=== PATIENT | female | born 1940 | race Caucasian/White ===

== ENCOUNTER 2022-07-03 14:24 | Emergency (ER) | payer MEDICARE, SELFPAY ==
[2022-07-03] VITALS (7 sets, daily range): BP systolic 107–184; BP diastolic 77–140; PULSE 78–120; RESP 12–22; TEMP 37.1; O2SAT 96–99
--- NOTE | ~2022-07-03 | CT_ITS ---
EXAMINATION: CT brain wo con DATE: 07/03/2022 15:43 INDICATION: head injury . TECHNIQUE: Computed tomography (CT) of the head was performed without intravenous contrast. The mA wa s adjusted according to patient size. Iterative reconstruction technique was employed. The dose-lengt h product was 605.33 mGy-cm. COMPARISON: None. FINDINGS: Moderate generalized motion limitations, that severely affects the reformatted images. No acute intracranial hemorrhage or extra-axial fluid collection. No hydrocephalus, mass, or herniation. No acute ischemic infarct. Unremarkable dural venous sinus attenuation. No acute osseous abnormality. The aerated spaces are clear. Moderate atrophy and chronic white matter change. Atherosclerotic intracranial calcification. IMPRESSION: Significant motion limitations, such that subtle pathology could be missed. Within that constraint, n o definite acute intracranial process is detected. Reviewed, dictated and finalized at location K. ATCHER TOW TRUCK IMPRESSION: Significant motion limitations, such that subtle pathology could be missed. Wit hin that constraint, no definite acute intracranial process is detected.
--- NOTE | ~2022-07-03 | XR_ITS ---
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 No chest complaints. hx dementia Comparison: None available. RESULT: Lines, tubes, and devices: Cholecystectomy clips. Lungs and pleura: Mild senescent change, otherwise clear. Cardiomediastinal silhouette: Stable. Other: No acute osseous or upper abdominal finding. IMPRESSION: No acute cardiopulmonary process. Reviewed, dictated and finalized at location K. AND BOILER COVERS SUPERVISOR
--- NOTE | ~2022-07-03 | XR_ITS ---
EXAM: XR pelvis 1-2V DATE: 07/03/2022 17:24 HISTORY: Fall today, unspecified pain.. poor historian . COMPARISON: None available. FINDINGS: Anastomotic bowel suture projects over the pelvis. Normal mineralization. No fracture or d islocation. No lytic or blastic lesion. Degenerative disc disease in the lower lumbar spine. Degenera tive change in the bilateral hips and pubic symphysis. No erosion or periosteal change. Soft tissues within normal limits. IMPRESSION: No acute osseous finding in the pelvis. Reviewed, dictated and finalized at location K. HELPER
--- NOTE | ~2022-07-03 | CT_ITS ---
EXAMINATION: CT cervical spine wo con DATE: 07/03/2022 15:43 INDICATION: head injury, fall TECHNIQUE: Computed tomography (CT) of the cervical spine was performed without intravenous contrast. Automated exposure control and iterative reconstruction technique were employed. The dose-length pro duct was 190.66 mGy-cm. COMPARISON: None. FINDINGS: Vertebral Body Alignment: Reversed cervical lordosis. Multilevel minimal listheses, presumably on a d egenerative basis. Craniocervical and atlantoaxial alignment: Moderate degenerative change. Alignment intact. Cranial se ttling. Osseous structures/fracture: No evidence of a lytic or blastic process in the visualized spine. No e vidence of acute fracture. . Cervical soft tissues: The paraspinal soft tissues planes are maintained. Degenerative changes: Multilevel degenerative disc disease and facet arthropathy. Severe right neural foraminal narrowing at C5-6. No severe central canal narrowing. IMPRESSION: No acute fracture or traumatic malalignment in the cervical spine. Reviewed, dictated and finalized at location K. NESS CONTINUITY PLANNING DIRECTOR
--- NOTE | 2022-07-03 14:51 | ED.FALL ---
HPI - Fall General Chief Complaint: Fall Stated Complaint: fall - head/neck pain Time Seen by Provider: 07/03/22 14:39 Source: patient and EMS Mode of arrival: EMS Limitations: dementia History of Present Illness HPI Narrative: This is a 81 year old female that presents to the ER after a fall today with head injury. Reportedly had witnessed fall at nursing facility. She did hit her head. She does not remember falling. Has no complaints currently. Related Data Allergies Allergy/AdvReac Type Severity Reaction Status Date / Time No Known Allergies Allergy Verified 07/03/22 16:46 Review of Systems Review of Systems: ROS unobtainable: Yes unobtainable due to medical condition (dementia) [facility] Past Medical History Medical History (Updated 07/03/22 @ 17:58 by Carisa Ramirez PA-C) History of dementia Social History Social History (Updated 07/03/22 @ 17:58 by Carisa Ramirez PA-C) Substance use: never Exam Narrative: GENERAL: Elderly, well-nourished, and in no acute distress. HEAD: Normocephalic, atraumatic. EYES: PERRLA and EOMI. ENT: Nares clear, no rhinorrhea or epistaxis. Mucous membranes moist. Oropharynx without tonsillar hypertrophy exudate or other lesions. Bilateral TMs pearly vallejo non-bulging NECK: Supple. No adenopathy or masses. C collar in place CHEST: Clear to auscultation. No respiratory distress. No wheezes rales or rhonchi HEART: Regular rate and rhythm. No murmur heard. Normal peripheral pulses. ABDOMEN: Soft, nontender, nondistended, normal active bowel sounds. EXTREMITIES: Normal range of motion. No edema or obvious deformity. SKIN: Warm, dry, no rash. NEURO: No focal deficits. Alert and oriented x1. PSYCH: Normal mood and affect Course Course Emergency Course: Family was updated on workup Vital Signs Vital signs: Vital Signs Temperature 98.8 F 07/03/22 14:23 Pulse Rate 80 07/03/22 14:23 Respiratory Rate 12 07/03/22 14:23 Blood Pressure 107/89 07/03/22 14:23 Pulse Oximetry 99 07/03/22 14:23 Oxygen Delivery Room Air 07/03/22 14:23 Temperature 98.8 F 07/03/22 14:23 Pulse Rate 80 07/03/22 14:23 Respiratory Rate 12 07/03/22 14:23 Blood Pressure 107/89 07/03/22 14:23 Pulse Oximetry 99 07/03/22 14:23 Oxygen Delivery Room Air 07/03/22 14:23 MDM - Fall MDM Narrative Medical decision making narrative: Patient presents to the emergency department after a fall today with head injury. Reportedly is at her baseline mentation. No focal deficits noted on exam. She has no complaints. Her vitals are stable. Initial CT scan of her brain was limited due to motion, this was repeated with CT scan of the brain and cervical spine without acute findings. Chest x-ray without acute cardiopulmonary abnormality. Pelvis x-ray also without acute findings. Family updated on case findings. Will be discharged back to [facility] to have follow up with primary care provider. Given warnings to return to the ER Differential Diagnosis Differential diagnosis: Likely concussion without loss of consciousness and other (subdural hematoma, cervical fracture, cervical strain) Imaging Data Radiologist's impression: ITS Impressions Head CT 07/03/22 15:56 IMPRESSION: Significant motion limitations, such that subtle pathology could be missed. Within that constraint, no definite acute intracranial process is detected. ADDENDUM: 07/03/22 1740 Additional imaging was obtained after the initial report was finalized. The new images are free of motion artifact and diagnostic. No acute intracranial process is detected. Old right basal ganglia lacunar infarct. Prominent right cerebral sulcus/CSF density collection, near the vertex likely representing a small, benign arachnoid cyst. Cervical Spine CT 07/03/22 16:20 IMPRESSION: No acute fracture or traumatic malalignment in the cervical spine. Chest X-Ray 07/03/22 17:39 IMPRESSION: No acute cardiopulm
--- NOTE | 2022-07-03 15:14 | PC.NURSE ---
Jojo Kilgore, and Nathan attempted to change the patient's soiled diaper when patient became agitated, attempting to hit and kick us, and refused to be changed. Per detention daughter is on the way to the hospital. Patient is attempting to remove c-collar even after being informed of why she needs to wear it
[2022-07-03] MEDS: LORazepam INJ (*CRX) 2 MG/ML VIAL 1 MG IM (16:46)
--- NOTE | 2022-07-03 18:22 | PC.NURSE ---
[facility] accepted NH return to [place] ETA 20p Trip # [phone] [id number] [facility] declined 1808 [facility] declined
--- NOTE | 2022-07-03 18:45 | PC.NURSE ---
Report called to Mey at 1845. My BELLO took report.
--- NOTE | 2022-07-03 19:22 | PC.NURSE ---
[facility] here.
== END 2022-07-03 19:25 ==
PROVIDERS: Emergency Provider Physician Assistant
DX: S09.90XA Unspecified injury of head, initial encounter (principal); F03.90 Unspecified dementia, unspecified severity, without behavioral disturbance, psychotic disturbance, mood disturbance, and anxiety; W19.XXXA Unspecified fall, initial encounter
CPT/HCPCS: 70450; 71046; 72125; 72170; 96372; 99284; J2060

== ENCOUNTER 2022-08-08 07:02 | Emergency (ER) | payer MEDICARE, SELFPAY ==
--- NOTE | ~2022-08-08 | CT_ITS ---
Noncontrast CT scan of the cervical spine Technique: Multiple contiguous axial [address] images of the cervical spine were obtained and rec onstructed in 2D sagittal and coronal planes on the acquisition scanner. Dose reduction technique was used on this scan by utilizing automated exposure control, adjustment of the mA and/or kV according to patient size. COMPARISON: 07/03/2022 Clinical History: Pain Findings: No fractures or dislocations. Osseous alignment is unchanged from prior exam. Stable minim al grade 1 anterolisthesis of C4 over C5. There are stable degenerative disc change most notably at C 5-C6 and C6-C7, with predominant right-sided uncovertebral degenerative change at these levels. There are stable facet arthropathy throughout the cervical spine. There is significant left neural foramin al narrowing at C4-C5. There is right neural foraminal narrowing at C5-C6. There is probable bilatera l neural foraminal narrowing at C3-C4. No prevertebral soft tissue swelling. Impression: No fracture. Stable minimal grade 1 anterolisthesis of C4 over C5. Stable degenerative spondylosis as compared to 1223, as detailed above. Reviewed, dictated and finalized at location . Impression: No fracture. Stable minimal grade 1 anterolisthesis of C4 over C5. Stable degenerative spondylosis as compared to 1223, as detailed above.
--- NOTE | ~2022-08-08 | CT_ITS ---
CT head without contrast Indication: Status post fall COMPARISON: 07/03/2022 Technique: Serial scans were obtained through the brain without the administration of contrast. Dose reduction technique was used on this scan by utilizing automated exposure control and iterative recon struction technique. The dose-length product (DLP) was 983.67 mGy-cm. Findings: There is no evidence of intracranial hemorrhage, mass lesion, or acute infarct. Chronic lac unar infarcts noted in the right basal ganglia. The ventricles and subarachnoid spaces are dilated, c onsistent with moderate atrophy. Low attenuation regions are seen within the periventricular white m atter bilaterally, likely representing changes from chronic microvascular ischemic disease. There is no evidence of edema, mass effect or midline shift. The visualized paranasal sinuses and mastoid ai r cells are clear. Impression: No intracranial hemorrhage, mass, or acute infarct. Chronic right basal ganglia lacunar infarct. Atrophy and chronic white matter changes, as above. Reviewed, dictated and finalized at location . Impression: No intracranial hemorrhage, mass, or acute infarct. Chronic right basal ganglia lacunar infarct. Atrophy and chronic white matter changes, as above.
--- NOTE | ~2022-08-08 | XR_ITS ---
AP view of the pelvis Clinical history: Pain Findings: No acute fracture or dislocation is seen. Osseous alignment is anatomic. Minimal degenerati ve change of both hip joints noted. Soft tissues are unremarkable. Impression: No fracture or dislocation. Minimal degenerative change of both hip joints. Reviewed, dictated and finalized at location . Impression: No fracture or dislocation. Minimal degenerative change of both hip joints.
--- NOTE | ~2022-08-08 | XR_ITS ---
Left wrist Technique: PA, oblique, lateral, and ulnar deviation views were obtained. Clinical History: Status post fall Findings: No acute fracture or dislocation is seen. Osseous alignment is anatomic. There is mild dege nerative change at the first CMC joint. Soft tissues are unremarkable. Impression: No fracture or dislocation. Mild degenerative change at the first CMC joint. Reviewed, dictated and finalized at location . Impression: No fracture or dislocation. Mild degenerative change at the first CMC joint.
--- NOTE | ~2022-08-08 | XR_ITS ---
Right Shoulder Technique: AP and scapular Y views were obtained. Clinical History: Pain Findings: No fracture or dislocation is seen. Osseous alignment is anatomic. The glenohumeral and acr omioclavicular joint spaces are preserved. Soft tissues are unremarkable. Impression: Unremarkable right shoulder radiographs. Reviewed, dictated and finalized at [facility]. Impression: Unremarkable right shoulder radiographs.
--- NOTE | ~2022-08-08 | XR_ITS ---
Right ankle Technique: AP, oblique, and lateral views were obtained. Clinical History: Pain Findings: No acute fracture or dislocation is seen. Probable chronic avulsion fragments noted at the tip of the medial malleolus. Osseous alignment is anatomic. Ankle mortise and other visualized joint spaces are preserved. Soft tissues are otherwise unremarkable. Impression: No definite acute fracture or dislocation. Probable chronic avulsion fracture fragments at the tip of the medial malleolus. Reviewed, dictated and finalized at location . Impression: No definite acute fracture or dislocation. Probable chronic avulsion fracture fragments at the tip of the medial malleolus .
[2022-08-08 07:06] VITALS: BP 112/82; PULSE 72; RESP 23; TEMP 37.3; O2SAT 98
--- NOTE | 2022-08-08 07:22 | ED_ITS ---
HPI - Fall General Chief Complaint: Fall Stated Complaint: fall Time Seen by Provider: 08/08/22 07:09 History of Present Illness HPI Narrative: Patient with history of dementia presenting here from [facility] after fall, patient unable to elucidate why or how that happened. Related Data Allergies Allergy/AdvReac Type Severity Reaction Status Date / Time No Known Allergies Allergy Verified 07/03/22 16:46 Review of Systems Review of Systems: CONST: No fever. HEENT: No sore throat C/V: No chest pain RESP: No cough GI: No abdominal pain : No dysuria. M/S: Right shoulder pain SKIN: No rash. NEURO: [No headache or focal numbness or weakness] PSYCH: [No depression] [facility] Past Medical History Medical History (Updated 08/08/22 @ 08:50 by Kimberly Lin MD) History of dementia Social History Social History (Updated 07/03/22 @ 17:58 by Carisa Ramirez PA-C) Substance use: never Exam 2 Narrative: EXAMINATION OF ORGAN SYSTEMS/BODY AREAS: Constitutional: Vital signs per nursing GENERAL: Resting comfortably and in NAD then becomes anxious and confused HEAD: Normal with no signs of head trauma. EYES: EOMI, conjunctiva normal ENT: Hearing grossly intact LUNGS: Nonlabored breathing. HEART: [Regular rate and rhythm] ABD: [Soft], [nontender to palpation] EXT: Right shoulder tenderness, left wrist tenderness, right ankle tenderness. No obvious deformity anywhere SKIN: [No rashes or lesions.] NEURO: [Alert and oriented x 1. No gross focal sensory or strength deficits.] PSYCH: Normal affect Course Vital Signs Vital signs: Vital Signs Temperature 99.1 F 08/08/22 07:06 Pulse Rate 72 08/08/22 07:06 Respiratory Rate 23 H 08/08/22 07:06 Blood Pressure 112/82 08/08/22 07:06 Pulse Oximetry 98 08/08/22 07:06 Oxygen Delivery Room Air 08/08/22 07:06 Temperature 99.1 F 08/08/22 07:06 Pulse Rate 72 08/08/22 07:06 Respiratory Rate 23 H 08/08/22 07:06 Blood Pressure 112/82 08/08/22 07:06 Pulse Oximetry 98 08/08/22 07:06 Oxygen Delivery Room Air 08/08/22 07:06 MDM - Fall MDM Narrative Medical decision making narrative: 81-year-old female presents from [facility] with [facility], she reports some pain in her right shoulder, vital signs stable here, on exam has some tenderness to palpation to the right shoulder, left wrist, right ankle, given her confusion I will obtain imaging to ensure no fractures, including that of her head and neck. All imaging reviewed by myself, and per radiology interpretation is negative for acute fractures. Time of discharge she is not complaining of any pain anywhere she is just confused and wants to go home. Discharge Plan Discharge Clinical Impression: Fall Patient Disposition: NH Nursing Home/Asst Living Condition: Stable Instructions: Antibiotic Form, Fall Prevention for Older Adults (ED) Additional Instructions: Please follow up with your doctor; you can return for any further issues. Follow-up/Referrals: Rob Gaming MD [Physician] - 2 Days PHYSICIAN NOT ON STAFF,NONSTAFF [Primary Care Provider] -
[2022-08-08 10:12] VITALS: BP 114/80; PULSE 74; RESP 18; O2SAT 99
== END 2022-08-08 10:59 ==
PROVIDERS: Emergency Provider Emergency Medicine
DX: M25.511 Pain in right shoulder (principal); F03.90 Unspecified dementia, unspecified severity, without behavioral disturbance, psychotic disturbance, mood disturbance, and anxiety; W19.XXXA Unspecified fall, initial encounter
CPT/HCPCS: 70450; 72125; 72170; 73030; 73110; 73610; 99284

== ENCOUNTER 2022-09-02 09:33 | Emergency (ER) | payer MEDICARE, SELFPAY ==
--- NOTE | ~2022-09-02 | XR_ITS ---
XR elbow LT 2V 09/02/2022 13:21 INDICATION: Left elbow pain after fall PROCEDURE: 2 views left elbow COMPARISON: No prior studies for comparison. FINDINGS: Fracture, dislocation or subluxation is not identified. The soft tissues appear within norm al limits. No foreign bodies are identified. IMPRESSION: 1: NO ACUTE BONE OR JOINT ABNORMALITY IDENTIFIED. Reviewed, dictated and finalized at location B.
--- NOTE | ~2022-09-02 | CT_ITS ---
EXAMINATION: CT cervical spine wo con DATE: 09/02/2022 10:53 INDICATION: Status post fall. TECHNIQUE: Computed tomography (CT) of the cervical spine was performed without intravenous contrast. The dose-length product was mGy-cm. Automated exposure control and iterative reconstruction techniqu e were employed. COMPARISON: None FINDINGS: Straightening of cervical lordosis. There is disc narrowing at C3-4 through C7-T1. Disc cosmo rowing most severe at C5-6 and C6-7 with prominent ventral osteophytes. There is degenerative anterol isthesis at C3-4 and C4-5. Craniovertebral junction is normal. There is moderate multilevel uncinate and facet hypertrophy. Odontoid process is normal. Lung apices are normal. No acute fracture or traum atic malalignment. No paraspinal soft tissue abnormality. IMPRESSION: 1. No acute abnormality of the cervical spine. 2: Moderate cervical spondylosis. Reviewed, dictated and finalized at location B.
--- NOTE | ~2022-09-02 | CT_ITS ---
EXAMINATION: CT brain wo con DATE: 09/02/2022 10:53 INDICATION: Status post fall. Head trauma. TECHNIQUE: Computed tomography (CT) of the head was performed without intravenous contrast. The dose- length product was 605.33 mGy-cm. Automated exposure control and iterative reconstruction technique w ere employed. COMPARISON: CT dated 08/08/2022 FINDINGS: Generalized atrophy. There are scattered moderate periventricular and subcortical white mat ter changes, most likely related to small vessel ischemic disease (microangiopathy). There are chroni c bilateral lacunar infarctions. There is intracranial atherosclerosis. No acute intracranial hemorrh age, infarction, mass or mass effect. Paranasal sinuses and mastoids are pneumatized. No depressed sk ull fractures. IMPRESSION: 1. No acute intracranial abnormality. 2: Chronic bilateral lacunar infarctions. 3: Chronic age-related findings. Reviewed, dictated and finalized at location B.
--- NOTE | ~2022-09-02 | XR_ITS ---
AP view of the pelvis and AP and lateral views of the bilateral hips Clinical history: Pain Findings: No acute fracture or dislocation is seen. Osseous alignment is anatomic. Bilateral hip and SI joint spaces are preserved. Soft tissues are unremarkable. Impression: No significant abnormality is seen. Reviewed, dictated and finalized at [facility]. Impression: No significant abnormality is seen.
--- NOTE | ~2022-09-02 | XR_ITS ---
XR shoulder LT min 2V, XR humerus LT 09/02/2022 13:21 Indication: Left arm pain Procedure: 4 views left shoulder and 2 views left humerus Comparison: No prior studies for comparison. Findings: There is anatomic alignment. No fracture, subluxation or dislocation. No significant soft t issue abnormality. No significant soft tissue abnormality. Impression: 1: No acute bone or joint abnormality. Reviewed, dictated and finalized at location B. Impression: 1: No acute bone or joint abnormality. Impression: 1: No acute bone or joint abnormality.
--- NOTE | ~2022-09-02 | XR_ITS ---
XR forearm LT 2V 09/02/2022 13:21 INDICATION: Left arm pain after fall PROCEDURE: 2 views left forearm COMPARISON: No prior studies for comparison. FINDINGS: Fracture, dislocation or subluxation is not identified. The soft tissues appear within norm al limits. No foreign bodies are identified. IMPRESSION: 1: NO ACUTE BONE OR JOINT ABNORMALITY IDENTIFIED. Reviewed, dictated and finalized at location B.
--- NOTE | ~2022-09-02 | XR_ITS ---
EXAMINATION: XR chest 2V 09/02/2022 13:21 INDICATION: Status post fall. Chest injury. PROCEDURE: AP and lateral views the chest COMPARISON: 07/03/2022 FINDINGS: The lungs are clear. The cardiomediastinal silhouette is within normal limits. There are no pleural effusions. There is no pneumothorax suspected. IMPRESSION: 1: NO ACUTE CARDIOPULMONARY DISEASE. Reviewed, dictated and finalized at location B.
[2022-09-02 09:34] VITALS: BP 143/89; PULSE 71; RESP 19; TEMP 36.5; O2SAT 94
[2022-09-02 11:05] VITALS: PULSE 68; RESP 19; O2SAT 99
--- NOTE | 2022-09-02 11:58 | PC.NURSE ---
Per daughter, patient has been c/o R arm pain x weeks.
--- NOTE | 2022-09-02 12:12 | PC.NURSE ---
Patient agitated and trying to get out of stretcher. Sitter placed with patient for patient safety.
--- NOTE | 2022-09-02 12:22 | PC.NURSE ---
called dietary and ordered lunch tray for pt at this time
[2022-09-02 12:24] VITALS: BP 108/83; PULSE 86; RESP 20; O2SAT 95
--- NOTE | 2022-09-02 12:49 | ED.FALL ---
HPI - Fall General Chief Complaint: Fall <Sarah Coles PA-C - Last Filed: 09/02/22 19:21> Stated Complaint: fall <Sarah Coles PA-C - Last Filed: 09/02/22 19:21> Time Seen by Provider: 09/02/22 11:21 <Sarah Coles PA-C - Last Filed: 09/02/22 19:21> History of Present Illness HPI Narrative: 82 y/o F w/ history of dementia reports from [facility] from [facility] - memory care unit. Pt is unaware of why she is in the hospital. I spoke with Carisa, director, at [facility] who provided the history. Carisa reports patient is living at [facility] in assisted living with who takes care of her. called for help when he heard the patient fall in the bathroom. He found her on the ground laying her R side and reported she had hit her head at that time. Pt was not wearing appropriate shoes, was wearing socks. No LOC per . EMS arrived and while moving the patient, she complained of L shoulder and arm pain. Patient was noted to not be wearing appropriate footwear,, she was wearing socks at the time of fall on bathroom floor. Pt's [facility] was notified by [facility]. Pt is A&Ox1 at baseline. Patient has been seen multiple times in the emergency department in the past 2 months for falls. Per [facility], they have advised the family to move the patient out of assisted living and into senior care, however family declines. <Sarah Coles PA-C - Last Filed: 09/02/22 19:21> Related Data Allergies/Adverse Reactions: Allergies Allergy/AdvReac Type Severity Reaction Status Date / Time No Known Allergies Allergy Verified 07/03/22 16:46 <Sarah Coles PA-C - Last Filed: 09/02/22 19:21> Review of Systems Review of Systems: CONSTITUTIONAL: Denies fever, chills EYES: Denies visual changes, redness, or discharge. ENT: Denies rhinorrhea, congestion, sore throat, or otalgia. CARDIOVASCULAR: Denies chest pain, palpitations, or edema. RESPIRATORY: Denies cough or dyspnea. GASTROINTESTINAL: Denies abdominal pain, nausea, vomiting, or diarrhea. GENITOURINARY: Denies dysuria or hematuria. SKIN: Denies rash or itching. MUSCULOSKELETAL: Denies back pain, joint pain, or myalgia. NEUROLOGIC: See HPI PSYCHIATRIC: Denies anxiety or depression. <Sarah Coles PA-C - Last Filed: 09/02/22 19:21> PMFSH Past Medical History Medical History: Medical History History of dementia <Sarah Coles PA-C - Last Filed: 09/02/22 19:21> Social History Social History: Social History Substance use: never <Sarah Coles PA-C - Last Filed: 09/02/22 19:21> Exam Narrative: GENERAL: Well-appearing, well-nourished. Patient resting in exam bed spontaneously moving all extremities. She appears anxious and tearful. HEAD: Normocephalic, atraumatic. No areas of abrasions, lacerations, hematomas or crepitus appreciated. No sharp sign or raccoon eyes EYES: PERRLA and EOMI. ENT: Nares clear, no rhinorrhea or epistaxis. Mucous membranes moist. Oropharynx without tonsillar hypertrophy exudate or other lesions. Bilateral TMs pearly vallejo nonbulging. No hemotympanums NECK: Supple. No adenopathy or masses. No cervical spinous tenderness, step-offs or deformities. CHEST: Clear to auscultation. No respiratory distress. No wheezes rales or rhonchi. No tenderness, crepitus or deformities to ribs HEART: Regular rate and rhythm. No murmur heard. Normal peripheral pulses. ABDOMEN: Soft, nontender, nondistended, normal active bowel sounds. BACK: No vertebral midline tenderness, step-offs or deformities. No overlying skin changes. EXTREMITIES: Full range of motion of all extremities. No tenderness to palpation of extremities or obvious deformities. There is mild tenderness over bilateral iliac crest. Full range of motion of hips without pain. No lacerations or abrasions martha
--- NOTE | 2022-09-02 13:48 | PC.NURSE ---
This RN called and spoke to daughter/FELICITA Resendiz as requested, and gave update on pt status/results.
[2022-09-02 15:14] VITALS: BP 135/79; PULSE 87; O2SAT 96
--- NOTE | 2022-09-02 16:44 | PC.NURSE ---
daughter called stated that she another sibling will be here within the half hour to flower picker their mother
== END 2022-09-02 17:46 ==
PROVIDERS: Emergency Provider Physician Assistant; PCP Internal Medicine Infectious Disease
DX: S09.90XA Unspecified injury of head, initial encounter (principal); S49.92XA Unspecified injury of left shoulder and upper arm, initial encounter; F03.90 Unspecified dementia, unspecified severity, without behavioral disturbance, psychotic disturbance, mood disturbance, and anxiety; R29.6 Repeated falls; M47.812 Spondylosis without myelopathy or radiculopathy, cervical region; W19.XXXA Unspecified fall, initial encounter
CPT/HCPCS: 70450; 71046; 72125; 73030; 73060; 73070; 73090; 73521; 99284

== ENCOUNTER 2023-05-15 16:10 | Emergency (ER) | payer MEDICARE, OTHER, SELFPAY ==
[2023-05-15] VITALS (13 sets, daily range): BP systolic 117–150; BP diastolic 62–88; PULSE 73–87; RESP 13–21; TEMP 36.8; O2SAT 94–100
--- NOTE | 2023-05-15 16:18 | ECG_ITS ---
Measurements Intervals C[place]il Rate: 84 P: 16 NM: 171 QRS: -16 QRSD: 85 T: 8 QT: 376 QTc: 447 Interpretive Statements SINUS RHYTHM MODERATE VOLTAGE CRITERIA FOR LVH, CONSIDER NORMAL VARIANT [MEETS CRITERIA IN ONE OF: R(aVL), S(V1), R(V5), R(V5/V6)+S(V1)] NO PREVIOUS ECG AVAILABLE FOR COMPARISON Electronically Signed On 05-15-2023 17:39:33 JUNIOR SYSTEMS ADMINISTRATOR by Nancie Sutton M.D.
[2023-05-15 16:25] LABS: Basophils Percent Auto 0.2 % (0.2-1.2); Eosinophils Percent Auto 0.4 % (0-4.4); Hematocrit 46.1 % (37.0-47.0); Hemoglobin 14.4 g/dL (12.0-15.0); Immature Granulocyte Absolute 0.05 K/mm3 (0.00-0.031); Immature Granulocyte Percent A 0.5 % (0-0.5); Lymphocytes Absolute Auto 2.09 K/mm3 (0.9-3.2); Lymphocytes Percent Auto 20.1 % (18.3-44.2); Mean Corpuscular HGB Conc 31.2 g/dl (32-36); Mean Corpuscular Hemoglobin 24.9 pg (26-34); Mean Corpuscular Volume 79.6 fl (80-100); Mean Platelet Volume 8.6 fl (7.4-10.4); Monocytes Absolute Auto 0.8 K/mm3 (0.1-0.6); Monocytes Percent Auto 7.6 % (2.6-8.5); Neutrophils Absolute Auto 7.4 K/mm3 (1.3-6.7); Neutrophils Percent Auto 71.2 % (45.5-73.1); Platelet Count Result 333 k/mm3 (150-375); Red Blood Count 5.79 M/mm3 (4.2-5.4); Red Cell Distribution Width 13.7 % (11.5-14.5); White Blood Count 10.4 K/mm3 (4.5-10.0)
[2023-05-15 16:37] LABS: Alanine Aminotransferase 23 U/L (6-35); Albumin Level 4.5 g/dL (3.5-5.1); Alkaline Phosphatase 99 U/L (38-126); Anion Gap 10 mmol/L (8-16); Aspartate Amino Transferase 28 U/L (14-36); Bilirubin,Total 0.6 mg/dL (0.2-1.3); Blood Urea Nitrogen 20 mg/dL (7-17); Calcium 9.7 mg/dL (8.4-10.2); Carbon Dioxide 25 mmol/L (22-30); Chloride 102 mmol/L (98-107); Estimated CRCL calculation 43 ml/min; Estimated Glomerular Filt Rate > 60; Glucose 144 mg/dL (65-110); Lipase 124 U/L (23-300); Potassium 4.1 mmol/L (3.4-5.0); Sodium 137 mmol/L (137-145)
[2023-05-15 16:52] LABS: Appearance Urine Cloudy (Clear); Bacteria Urine None Seen /hpf; Bilirubin Urine Negative (Negative); Blood Urine Negative (Negative); Color Urine Yellow (Yellow); Glucose Urine UA Negative (Negative); Ketones Urine Negative (Negative); Leukocyte Esterase Ur Negative LEU/UL (Negative); Need Manual Microscopic Reviewed; Nitrate Urine Negative (Negative); Protein Urine Trace mg/dL (Negative); RBC Urine 0-2 /hpf (0-2); Squamous Epithelial Cell Urine Few /hpf (Few); Urobilinogen Urine 0.2 mg/dL (<2.0); WBC Urine 0-5 /hpf
[2023-05-15 16:54] LABS: Add Urine Microscopic? YES
--- NOTE | 2023-05-15 17:00 | ED.GENADULT ---
HPI - General Adult General Chief complaint: Nausea/Vomiting/Diarrhea Stated complaint: n/v/d, syncopal episode Time Seen by Provider: 05/15/23 16:30 History of Present Illness HPI narrative: patient is an 82-year-old female with history of dementia who presents ER after having a syncopal episode while at the dinner table. She apparently lost her bowels prior to losing consciousness. Patient has no complaints at this time and is oriented x1. Related Data Allergies Allergy/AdvReac Type Severity Reaction Status Date / Time No Known Allergies Allergy Verified 05/15/23 16:20 Review of Systems Review of Systems: ROS unobtainable: Yes unobtainable due to mental status PMFSH Past Medical History Medical History History of dementia Social History Social History Substance use: never Exam Narrative: GENERAL: Well-appearing, well-nourished, and in no acute distress. HEAD: Normocephalic, atraumatic. ENT: Mucous membranes moist. CHEST: Clear to auscultation. No respiratory distress. HEART: Regular rate and rhythm. Normal peripheral pulses. ABDOMEN: Soft, nontender, nondistended. EXTREMITIES: Normal range of motion. No edema. SKIN: Warm, dry, no rash. NEURO: Alert and oriented x1. PSYCH: Normal mood and affect. Course Course Emergency Course: Patient resting comfortably. She does not stand at baseline. patient felt to have vasovagal syncope due to diarrhea. No orthostatic hypertension here. Will give a L of fluid. Family comfortable taking patient home. Vital Signs Vital signs: Vital Signs Temperature 98.2 F 05/15/23 16:03 Pulse Rate 87 05/15/23 16:03 Respiratory Rate 18 05/15/23 16:03 Blood Pressure 117/62 05/15/23 16:03 Pulse Oximetry 94 05/15/23 16:03 Oxygen Delivery Room Air 05/15/23 16:03 Temperature 98.2 F 05/15/23 16:03 Pulse Rate 81 05/15/23 17:25 Respiratory Rate 13 05/15/23 17:00 Blood Pressure 123/77 05/15/23 17:25 Pulse Oximetry 96 05/15/23 17:00 Oxygen Delivery Room Air 05/15/23 16:03 Medical Decision Making Vital Signs Vital Signs: Vital Signs Temperature 98.2 F 05/15/23 16:03 Pulse Rate 87 05/15/23 16:03 Respiratory Rate 18 05/15/23 16:03 Blood Pressure 117/62 05/15/23 16:03 Pulse Oximetry 94 05/15/23 16:03 Oxygen Delivery Room Air 05/15/23 16:03 Temperature 98.2 F 05/15/23 16:03 Pulse Rate 81 05/15/23 17:25 Respiratory Rate 13 05/15/23 17:00 Blood Pressure 123/77 05/15/23 17:25 Pulse Oximetry 96 05/15/23 17:00 Oxygen Delivery Room Air 05/15/23 16:03 Lab Data 05/15/23 16:19 05/15/23 16:19 Labs: Lab Results 05/15/23 05/15/23 Range/Units 16:19 16:34 WBC 10.4 H (4.5-10.0) K/mm3 RBC 5.79 H (4.2-5.4) M/mm3 Hgb 14.4 (12.0-15.0) g/dL Hct 46.1 (37.0-47.0) % MCV 79.6 L (80-100) fl MCH 24.9 L (26-34) pg MCHC 31.2 L (32-36) g/dl RDW 13.7 (11.5-14.5) % Plt Count 333 (150-375) k/mm3 MPV 8.6 (7.4-10.4) fl Immature Gran % (Auto) 0.5 (0-0.5) % Neut % (Auto) 71.2 (45.5-73.1) % Lymph % (Auto) 20.1 (18.3-44.2) % [place] % (Auto) 7.6 (2.6-8.5) % Eos % (Auto) 0.4 (0-4.4) % Baso % (Auto) 0.2 (0.2-1.2) % Lymph # (Auto) 2.09 (0.9-3.2) K/mm3 [place] # (Auto) 0.8 H (0.1-0.6) K/mm3 Eos # (Auto) 0.0 (0-0.3) K/mm3 Baso # (Auto) 0.0 (0.0-0.1) K/mm3 Abs Immat Gran (auto) 0.05 H (0.00-0.031) K/mm3 Absolute Neuts (auto) 7.4 H (1.3-6.7) K/mm3 Absolute Nucleated RBC 0.0 (0.0-0.012) K/mm3 Nucleated RBC % 0.0 (0.0-0.2) % Sodium 137 (137-145) mmol/L Potassium 4.1 (3.4-5.0) mmol/L Chloride 102 (98-107) mmol/L Carbon Dioxide 25 (22-30) mmol/L Anion Gap 10 (8-16) mmol/L BUN 20 H (7-17) mg/dL Creatinine 0.80 (0.7-1.0) mg/dL Estim Creat Clear Calc 43 ml/min Estimated GFR > 60 (59 - ) Glucose 144 H (65-110) mg/dL Calcium 9.7 (8.4-10.2) mg/dL Total Bilirubin 0.6 (0.2-1.3) mg/dL AST 28 (14-36) U/L ALT 23 (6-35) U/L Alkaline Phosphatase 99 (38-126) U/L Total Protein 8.0 (6.3-8.2) g/dL Albumin 4.5 (3.5-5.1) g/dL Lipase 124 (23-300) U/L Urine Color Yellow (Yellow) Urine Appearance Cloudy H (Clear) Urine pH 5.0 (5.0-9.0) Ur Specific [place] 1.020 (1.001-1.035) Urine Protein Trace (Negative) mg/dL Urine Glucose (UA) Negative (Negative) mg/dL Urine Ketones Negative (Negative) mg/dL Ur Blood (Man) Negative (Negative) Urine Nitrate Negative (Negative) Urine Bilirubin Negative (Negative) Urine Urobilinogen 0.2 (<2.0) mg/dL Add Ur Microanalysis Reviewed Leukocyte Esterase Rfl Negative (Negative) SONDRA/UL Urine RBC 0-2 (0-2) /hpf Urine WBC 0-5 /hpf Ur Squamous Epith Cells Few (Few) /hpf Urine Bacteria None seen /hpf Urine Casts 6-10 Urine Characteristics Clear ECG Data EKG #1: ECG completion date: 05/15/23 ECG completion time: 16:24 EKG Interpretation: normal rate (84), sinus rhythm, no ectopy, normal QRS, normal QT and left axis Discharge Plan Discharge Clinical Impression: Vasovagal syncope Patient Disposition: Home, Self-Care Condition: Stable Instructions: Syncope (ED) Additional Instructions: is return the ER if you have fever 100.4? F, have recurrent loss of consciousness, or you have additional concerns. Follow-up/Referrals: Mary,MD Flaco [Primary Care Provider] - 1 Week
[2023-05-15] MEDS: SODIUM CHLORIDE 0.9% IV 1,000 ML 999 ML IV CONT (17:33)
== END 2023-05-15 18:28 | disposition home or self-care (01) ==
PROVIDERS: Emergency Provider Emergency Medicine; PCP Internal Medicine Infectious Disease
DX: R55 Syncope and collapse (principal); F03.90 Unspecified dementia, unspecified severity, without behavioral disturbance, psychotic disturbance, mood disturbance, and anxiety
CPT/HCPCS: 36415; 80053; 81001; 83690; 85025; 93005; 96360; 99283; J7030

== ENCOUNTER 2023-09-20 12:42 | Outpatient (NON) | payer MEDICARE, SELFPAY ==
[2023-09-20 14:00] LABS: Toxigenic C. Diff NEGATIVE (NEGATIVE)
== END 2023-09-20 12:43 | disposition home or self-care (01) ==
PROVIDERS: PCP Internal Medicine Infectious Disease; Visit Provider Internal Medicine Infectious Disease
DX: R19.7 Diarrhea, unspecified (principal)
CPT/HCPCS: 87493

== ENCOUNTER 2023-09-30 16:15 | Emergency (ER) | payer MEDICARE, SELFPAY ==
--- NOTE | 2023-09-30 16:32 | ED.CPR ---
HPI - CPR General Chief Complaint: Cardiac Arrest/CPR Stated Complaint: WITTNESSED CARDIAC ARRESST Time Seen by Provider: 09/30/23 16:23 Source: EMS Mode of arrival: EMS Limitations: clinical condition History of Present Illness HPI narrative: 83-year-old with a history of advanced dementia was brought in from home and a cardiac arrest. As per the EMS patient was having shower vomited and passed out, CPR was initiated by caregivers. Later 911 was called upon their arrival patient was unresponsive ACL[facility] CPR was continued no cardiac activity noted by bedside ultrasound MD complaint: collapsed during rest Onset (ago): minute(s) (25) Timing confirmed by: caregiver Place: home Bystander CPR performed: Yes Initial findings in the field: unresponsive, no respirations and no pulse ROSC in the field: No Associated injuries: No Treatments prior to arrival: intubation and epinephrine mgs # (4) Related Data Allergies Allergy/AdvReac Type Severity Reaction Status Date / Time No Known Allergies Allergy Verified 05/15/23 16:20 Review of Systems Review of Systems: ROS unobtainable: Yes unobtainable due to medical condition [facility] Past Medical History Medical History History of dementia Social History Social History Substance use: never Exam Const: General: other (Unresponsive) HENMT: Head: normal to inspection Mouth: Yes other (ETT in place) Eyes: Other: No pupillary reflex Neck: Neck: normal visual inspection Chest: Chest palpation & inspection: normal inspection of the chest and other (Asystole) Breast/axilla inspection: Other (Breath sounds heard with BVM) GI: Inspection: normal to inspection Course Course Emergency Course: ACLS protocol was continued. No significant change. Code was called off at 4:15 p.m.. Family was notified and counseled. i was notified by the nurse pt body is being donated to [facility]. Discharge Plan Discharge Clinical Impression: Cardiac arrest Patient Disposition: Condition: Follow-up/Referrals: Mary,MD Flaco [Primary Care Provider] -
== END 2023-10-01 00:09 | disposition expired ==
PROVIDERS: Emergency Provider Family Medicine; PCP Internal Medicine Infectious Disease
DX: I46.9 Cardiac arrest, cause unspecified (principal); F03.90 Unspecified dementia, unspecified severity, without behavioral disturbance, psychotic disturbance, mood disturbance, and anxiety
CPT/HCPCS: 92950; 99285; J0171